=== PATIENT | male | born 1975 | race Caucasian/White ===

== ENCOUNTER → 2019-05-19 | Outpatient (CLI) | payer OTHER ==
[2019-05-19 17:50] LABS: BLOOD UREA NITROGEN 15 MG/DL (7-18); CREATININE FOR GFR 1.24 MG/DL (0.70-1.30); GLOMERULAR FILTRATION RATE > 60.0 (>60)
== END ==
LOC: M LAB 16:01
PROVIDERS: ATTEND Otolaryngology
DX: H90.41 Sensorineural hearing loss, unilateral, right ear, with unrestricted hearing on the contralateral side (principal)

== ENCOUNTER → 2019-05-22 | Outpatient (CLI) | payer OTHER ==
--- NOTE | 2019-05-22 18:17 | REP ---
MRI study of the brain and internal auditory canals: Without and with IV contrast. History: Hearing loss in the right ear since December. Sensorineural hearing loss unilateral right ear. No comparison study. Technique: Axial and coronal imaging planes are utilized. T1 and T2-weighted scans include spin-echo, inversion recovery, diffusion, thin-section gradient echo T2-weighted scans, and postcontrast posterior fossa thin slices and whole brain images. The gadolinium enhancement dose is 20 mL of intravenous ProHance. MRI findings: There is no evidence of intraorbital abnormality. There are moderate mucosal thickening changes along the anterior campbell of the maxillary sinuses bilaterally, left greater than right consistent with mucous retention cysts. No bony calvarial defect is seen. Villegas/white differentiation pattern is intact above and below the tentorium. Seventh and eighth nerves are noted in a normal internal auditory canal on the left. 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 The internal auditory canal is mildly widened by this CP angle cistern mass. It demonstrates homogeneous bright contrast enhancement and is consistent with an acoustic neurinoma. It measures 20 mm in medial to lateral dimension by 12 mm anterior to posterior by 10 mm cranial to caudal. No other cranial nerve lesion is appreciated. Vestibular and cochlear apparatus appear intact bilaterally. Postcontrast images show no other abnormal intracranial enhancement. There is no evidence of hemorrhage or infarction. 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 Its dimensions are 20 x 12 x 10 mm. Electronically Signed by Gordon Fan MD 05/22/2019 08:47 P
== END ==
LOC: M RAD 13:03
PROVIDERS: ATTEND Otolaryngology
DX: H90.41 Sensorineural hearing loss, unilateral, right ear, with unrestricted hearing on the contralateral side (principal)